=== PATIENT | female | born 1985 | race Caucasian/White ===

== ENCOUNTER 2025-01-02 08:09 | Emergency (ER) | payer BC ==
[~2025-01-02] VITALS: Ht 162.6 cm; Wt 74.1 kg
[2025-01-02] MEDS ORDERED: AMOXICILLIN500 MG PO (08:48)
[2025-01-02] MEDS ORDERED: PERIDEX473 M1 MM (08:48)
[2025-01-02 09:15] VITALS: BP 147/89
== END 2025-01-02 09:15 | disposition home or self-care (01) ==
LOC: ED 08:09
DX: K08.89 Other specified disorders of teeth and supporting structures (principal)
CPT/HCPCS: 99282